=== PATIENT | male | born 1980 | race Caucasian/White ===

== ENCOUNTER 2017-11-11 15:11 | Emergency (ER) | payer BC ==
[2017-11-11] MEDS ORDERED: ONDANSETRON HCL 4 MG/2 ML SOL IV ONE (15:18)
[2017-11-11] MEDS ORDERED: HYDROMORPHONE HCL 2 MG/ML SOL IV ONE (15:18)
[2017-11-11] MEDS ORDERED: HYDROMORPHONE 1 MG/ML SYRINGE ONE (15:36)
[2017-11-11 15:37] LABS: BASOPHILS % (AUTO) 1 % (0-3); EOSINOPHILS % (AUTO) 2 % (0-9); HEMATOCRIT 51 % (39-53); HEMOGLOBIN 16.4 gm/dl (13.5-17.7); LYMPHOCYTES % (AUTO) 22.6 % (10-50); MEAN CORPUSCULAR HEMOGLOBIN 27.2 pg (27.0-32.0); MEAN CORPUSCULAR HGB CONC 32.3 gm/dl (32.0-36.0); MEAN CORPUSCULAR VOLUME 84 fL (80-100); MONOCYTES % (AUTO) 7.9 % (0-12); NEUTROPHILS % (AUTO) 66.6 % (37-80)
[2017-11-11] MEDS ORDERED: ONDANSETRON HCL 4 MG/2 ML SOL ONE (15:37)
[2017-11-11] MEDS: SODIUM CHLORIDE 0.9% 1000ML 1,000 ML IV SCH ×2 (15:40→16:50)
[2017-11-11 15:43] LABS: LACTIC ACID 1.2 mMol/L (0.0-2.0)
[2017-11-11] MEDS ORDERED: SODIUM CHLORIDE 0.9% FLUSH 10 ML SOL IV PRN (15:47)
[2017-11-11 15:51] LABS: ALBUMIN 4.2 gm/dl (3.4-5.0); BILIRUBIN,TOTAL 0.8 mg/dl (0.2-1.0); CARBON DIOXIDE 25.4 mEq/L (21-32); CREATININE 0.89 mg/dl (0.80-1.30); POTASSIUM 4.3 mMol/L (3.5-5.1); TOTAL PROTEIN 8.3 gm/dl (6.4-8.2)
[2017-11-11 16:21] LABS: APPEARANCE,URINE Clear; BILIRUBIN,URINE NEGATIVE (NEGATIVE); COLOR,URINE Yellow; GLUCOSE, URINE (UA) NEGATIVE (NEGATIVE); KETONES,URINE NEGATIVE (NEGATIVE); LEUKOCYTE ESTERASE ,URINE NEGATIVE (NEGATIVE); NITRATE,URINE NEGATIVE (NEGATIVE); OCCULT BLOOD,URINE 3+ (NEG-TRACE); PH,URINE 5.5; UROBILINOGEN,URINE 0.2 (0.2-1.0 EU)
[2017-11-11 16:33] LABS: BACTERIA 1+ (< 1+); CRYSTALS NEGATIVE (0-3 AVE/HPF); EPITHELIAL CELLS NEGATIVE (SQUAMOUS); RBC,URINE 25-35 (0-3AV/HPF); WBC,URINE 0-1 (0-5AV/HPF)
[2017-11-11 17:31] VITALS: BP 153/104; PULSE 86; RESP 16; TEMP 97.1; O2SAT 95
== END 2017-11-11 18:26 | disposition home or self-care (01) ==
LOC: ED 15:11
DX: R10.30 Lower abdominal pain, unspecified (principal); N23 Unspecified renal colic; N20.1 Calculus of ureter
CPT/HCPCS: 74177; 80053; 81001; 85025; 96365; 96366; 96374; 96375; 99283; 99285; J2405; Q9967; J1170